=== PATIENT | female | born 1995 | race Caucasian/White ===

== ENCOUNTER 2017-10-22 18:04 | Emergency (ER) | payer OTHER ==
[~2017-10-22] VITALS: Ht 154.9 cm; Wt 62.7 kg
[2017-10-22 18:13] VITALS: TEMP 36.6; Ht 154.9 cm; Wt 62.7 kg
--- NOTE | 2017-10-22 18:38 | EMERGENCY ROOM VISIT NOTE ---
History Report prepared by Natasha: Rudy Jones Under the Supervision of: Dr. Isaac Davis M.D. First contact with patient: 18:19 Chief Complaint: CHEST PAIN Stated Complaint: CHEST PAINS Nursing Triage Summary: Patient presents with parents ambulatory to triage with c/o mid to right sided chest pain Has seen chiropractor for symptoms without relief States she has had pain intermittently for the last year States pain is always there and feels like it is getting worse Patient states she is SOB at times History of Present Illness The patient is a 22 year old female who presents to the Emergency Room with complaints of worsening chest pain beginning a month ago. The patient states she is occasionally short of breath, dizzy, and lightheaded. She reports her symptoms have been worsening over the past week. The patient notes her symptoms radiate into her right shoulder and eating makes it occasionally worse. She states nothing makes it better. The patient reports stretching and deep breathing does not make it worse. She notes she has not been taking pain medication. The patient states she was evaluated by a chiropractor and was told she would need x-rays if her symptoms did not resolve. She denies a past medical history, nausea, and trauma to her chest. Source of History: patient Onset: month ago Position: chest Timing: worsening Modifying Factors (Worsening): eating Associated Symptoms: + SOB (occasional), No nausea Note: Associated symptoms: occasional dizziness and lightheadedness Denies: trauma Review of Systems See HPI for pertinent positives & negatives. A total of 10 systems reviewed and were otherwise negative. Past Medical & Surgical Medical Problems: (1) No Known Active Medical Problems Family History Patient reports no known family medical history. Social History Smoking Status: Never Smoker Marital Status: single Housing Status: lives with family Current/Historical Medications No Active Prescriptions or Reported Meds Allergies Coded Allergies: No Known Allergies (Unverified , 10/22/17) Physical Exam Vital Signs Date Time Temp Pulse Resp B/P (MAP) Pulse Ox O2 Delivery O2 Flow Rate FiO2 10/22/17 20:57 86 18 119/73 100 10/22/17 20:05 78 18 115/71 99 Room Air 10/22/17 18:42 100 Room Air 10/22/17 18:29 107 10/22/17 18:13 36.6 108 16 120/81 100 Room Air Physical Exam GENERAL: Awake, alert, well-appearing, in no acute distress HENT: Normocephalic, atraumatic. Oropharynx unremarkable. EYES: Normal conjunctiva. Sclera non-icteric. NECK: Supple. No nuchal rigidity. FROM. No JVD. RESPIRATORY: Clear to auscultation. CARDIAC: Regular rate, normal rhythm. Extremities warm and well perfused. Pulses equal. ABDOMEN: Soft, non-distended. No tenderness to palpation. No rebound or guarding. No masses. RECTAL: Deferred. MUSCULOSKELETAL: Chest examination reveals tenderness to the right chest wall. The back is symmetrical on inspection without obvious abnormality. There is no CVA tenderness to palpation. No joint edema. LOWER EXTREMITIES: Calves are equal size bilaterally and non-tender. No edema. No discoloration. NEURO: Normal sensorium. No sensory or motor deficits noted. SKIN: No rash or jaundice noted. Medical Decision & Procedures ER Provider Diagnostic Interpretation: X-ray results as stated below per interpretation by me and the radiologist: CHEST ONE VIEW PORTABLE CLINICAL HISTORY: CHEST PAIN dyspnea COMPARISON STUDY: No previous studies for comparison. FINDINGS: The bones soft tissues and hemidiaphragms are normal. The cardiomediastinal silhouette is normal. The lungs are clear. The pulmonary vasculature is normal. IMPRESSION: Negative chest. The above report was generated using voice recognition software. It may contain grammatical, syntax or spelling errors. Electronically signed by: Sahil Barragan M.D. 10/22/2017 6:45 PM Dictated Date/Time: 10/22/2017 6:45 PM Laboratory Results 10/22/17 18:30 Red Blood Count 4.61, Mean Corpuscular Volume 79.0, Mean Corpuscular Hemoglobin 27.3, Mean Corpuscular Hemoglobin Concent 34.6, Mean Platelet Volume 9.4, Neutrophils (%) (Auto) 60.1, Lymphocytes (%) (Auto) 27.7, Monocytes (%) (Auto) 10.7, Eosinophils (%) (Auto) 0.7, Basophils (%) (Auto) 0.7, Neutrophils # (Auto ) 4.59, Lymphocytes # (Auto) 2.11, Monocytes # (Auto) 0.82, Eosinophils # (Auto ) 0.05, Basophils # (Auto) 0.05 10/22/17 18:30 Test 10/22/17 18:30 10/22/17 19:27 10/22/17 20:17 White Blood Count 7.63 K/uL (4.8-10.8) Red Blood Count 4.61 M/uL (4.2-5.4) Hemoglobin 12.6 g/dL (12.0-16.0) Hematocrit 36.4 % (37-47) Mean Corpuscular Volume 79.0 fL (80-100) Mean Corpuscular Hemoglobin 27.3 pg (25-34) Mean Corpuscular Hemoglobin Concent 34.6 g/dl (32-36) Platelet Count 291 K/uL (130-400) Mean Platelet Volume 9.4 fL (7.4-10.4) Neutrophils (%) (Auto) 60.1 % Lymphocytes (%) (Auto) 27.7 % Monocytes (%) (Auto) 10.7 % Eosinophils (%) (Auto) 0.7 % Basophils (%) (Auto) 0.7 % Neutrophils # (Auto) 4.59 K/uL (1.4-6.5) Lymphocytes # (Auto) 2.11 K/uL (1.2-3.4) Monocytes # (Auto) 0.82 K/uL (0.11-0.59) Eosinophils # (Auto) 0.05 K/uL (0-0.5) Basophils # (Auto) 0.05 K/uL (0-0.2) RDW Standard Deviation 41.9 fL (36.4-46.3) RDW Coefficient of Variation 14.7 % (11.5-14.5) Immature Granulocyte % (Auto) 0.1 % Immature Granulocyte # (Auto) 0.01 K/uL (0.00-0.02) Anion Gap 7.0 mmol/L (3-11) Est Creatinine Clear Calc Drug Dose 98.0 ml/min Estimated GFR () 127.9 Estimated GFR (Non- 110.4 BUN/Creatinine Ratio 11.5 (10-20) Calcium Level 8.7 mg/dl (8.5-10.1) Total Bilirubin 2.5 mg/dl (0.2-1) Direct Bilirubin 0.3 mg/dl (0-0.2) Aspartate Amino Transf (AST/SGOT) 13 U/L (15-37) Alanine Aminotransferase (ALT/SGPT) 17 U/L (12-78) Alkaline Phosphatase 69 U/L (45-117) Total Creatine Kinase 84 U/L (26-192) Creatine Kinase MB 0.6 ng/ml (0.5-3.6) Creatine Kinase MB Ratio 0.7 (0-3.0) Troponin I < 0.015 ng/ml (0-0.045) Total Protein 8.1 gm/dl (6.4-8.2) Albumin 4.1 gm/dl (3.4-5.0) Lipase 99 U/L (73-393) Bedside D-Dimer 106 ng/mlFEU (0-450) Bedside Troponin I < 0.030 ng/ml (0-0.045) Labs reviewed by ED physician. Medications Administered Medications (Trade) Dose Ordered Sig/Kimberly Route Start Time Stop Time Status Last Admin Dose Admin Famotidine (Pepcid Tab) 20 mg NOW STAT PO 10/22/17 18:49 10/22/17 18:51 DC 10/22/17 19:30 20 MG Sucralfate (Carafate Tab) 1 gm NOW STAT PO 10/22/17 18:49 10/22/17 18:51 DC 10/22/17 19:30 1 GM Potassium Chloride (Klor-Con M10) 40 meq STK-MED ONCE .ROUTE 10/22/17 19:28 10/22/17 19:29 DC 10/22/17 19:30 40 MEQ Al Hydroxide/Mg Hydroxide (Maalox Susp) 30 ml STK-MED ONCE .ROUTE 10/22/17 19:28 10/22/17 19:29 DC 10/22/17 19:31 30 ML Lidocaine HCl (Viscous Lidocaine 2% Soln) 20 ml STK-MED ONCE .ROUTE 10/22/17 19:28 10/22/17 19:29 DC 10/22/17 19:32 20 ML Potassium Chloride (Klor-Con Tab) 40 meq NOW STAT PO 10/22/17 19:50 10/22/17 19:51 DC 10/22/17 20:22 40 MEQ ECG Per My Interpretation Indication: chest pain Rate (beats per minute): 106 Rhythm: sinus tachycardia Findings: T-wave inversion (Inferior and anterior), other (No ST elevation or depression) Comparison ECG Date: Same visit Change: no significant change Change: Repeat EKG in the same visit: Normal sinus rhythm with a rate of 80. TWI inferiorly and anteriorly. Unchanged from previous EKG. ED Course 1820: Past medical records reviewed. The patient was evaluated in room A04B. A complete history and physical examination was performed. 1848: Ordered Sucralfate 1gm PO, Famotidine 20mg PO 1927: Ordered Lidocaine HCl 20ml .ROUTE, Maalox Susp 30ml .ROUTE, Potassium Chloride 40 meq .ROUTE 1949: Ordered Potassium Chloride 40meq PO 1951: I reevaluated the patient. She is feeling better from the GI cocktail, Pepcid, and Carafate. 2033: I discussed the patient's case with Dr. Head, Cardiology. He agreed with close, outpatient follow-up. 2039: Upon reexamination the patient is resting. I discussed results and treatment plan with the patient. She verbalizes agreement and understanding. The patient is ready for discharge. Medical Decision Etiologies such as cardiac ischemia, aortic dissection, pulmonary embolism, pneumonia, pneumothorax, musculoskeletal, infections, pericarditis, myocarditis , esophageal rupture, gastrointestinal, as well as others were entertained. This is a 22-year-old female who presents emergency department complaining of chest pain. The patient has T-wave inversions in the inferior leads as well as the anterior leads however her chest pain has been ongoing for the past month. The patient had serial EKGs obtained in the emergency department which were essentially unchanged. In addition she had 2 troponins drawn. As the chest pain has been going on for months I would expect her troponin to be elevated if this were related to her heart. As such they are not. In addition the patient does not have a elevation in her white blood cell count and has a normal renal profile. Her d-dimer is also negative. I believe she is at low risk for a blood clot. In addition I did discuss this case with cardiology and stress to both the patient as well as her parents that she needs close follow-up with cardiology for an outpatient echo. I also stressed no strenuous activity until that follow-up. Patient and parents were in agreement with the treatment plan. Medication Reconcilliation Current Medication List: was personally reviewed by me Blood Pressure Screening Patient's blood pressure: Normal blood pressure Blood pressure disposition: Did not require urgent referral Consults Time Called: 2031 Consulting Physician: Dr. Head, Cardiology Returned Call: 2033 I discussed the patient's case with Dr. Head, Cardiology. He agreed with close , outpatient follow-up. Impression Primary Impression: Chest pain Scribe Attestation The scribe's documentation has been prepared under my direction and personally reviewed by me in its entirety. I confirm that the note above accurately reflects all work, treatment, procedures, and medical decision making performed by me. Departure Information Dispostion Home / Self-Care Prescriptions No Active Prescriptions or Reported Meds Referrals Montez Head MD Forms HOME CARE DOCUMENTATION FORM, IMPORTANT VISIT INFORMATION, School Instructions, Work Instructions Patient Instructions Chest Pain - [facility], Hypokalemia Dc, [facility] Additional Instructions FOLLOW UP WITH DR HEAD'S OFFICE THIS WEEK No strenuous activity until follow up. You have been examined and treated today on an emergency basis only. This is not a substitute for, or an effort to provide, complete comprehensive medical care. It is impossible to recognize and treat all injuries or illnesses in a single emergency department visit. It is therefore important that you follow up closely with your PCP. Call as soon as possible for an appointment. Thank you for your time and consideration. I look forward to speaking with you again soon. Please don't hesitate to call us if you have any questions. Problem Qualifiers Primary Impression: Chest pain Chest pain type: unspecified Qualified Codes: R07.9 - Chest pain, unspecified
[2017-10-22 18:42] VITALS: O2SAT 100
[2017-10-22 18:47] LABS: BASO % 0.7 %; BASO ABS # 0.05 K/uL (0-0.2); EOS % 0.7 %; EOS ABS # 0.05 K/uL (0-0.5); HEMATOCRIT 36.4 % (37-47); HEMOGLOBIN 12.6 g/dL (12.0-16.0); IG# 0.01 K/uL (0.00-0.02); LYMPH % 27.7 %; LYMPH ABS # 2.11 K/uL (1.2-3.4); MEAN CORPUSCULAR HEMOGLOBIN 27.3 pg (25-34); MEAN CORPUSCULAR HGB CONC 34.6 g/dl (32-36); MEAN PLATELET VOLUME 9.4 fL (7.4-10.4); MONO % 10.7 %; MONO ABS # 0.82 K/uL (0.11-0.59); NEUT % 60.1 %; NEUT ABS # 4.59 K/uL (1.4-6.5); PLATELET COUNT 291 K/uL (130-400); RED CELL DISTRIBUTION WIDTH CV 14.7 % (11.5-14.5); RED CELL DISTRIBUTION WIDTH SD 41.9 fL (36.4-46.3); WHITE BLOOD COUNT 7.63 K/uL (4.8-10.8)
--- NOTE | 2017-10-22 18:47 | DIAGNOSTIC IMAGING REPORT ---
CHEST ONE VIEW PORTABLE CLINICAL HISTORY: CHEST PAIN dyspnea COMPARISON STUDY: No previous studies for comparison. FINDINGS: The bones soft tissues and hemidiaphragms are normal. The cardiomediastinal silhouette is normal. The lungs are clear. The pulmonary vasculature is normal. IMPRESSION: Negative chest. The above report was generated using voice recognition software. It may contain grammatical, syntax or spelling errors. Electronically signed by: Sahil Barragan M.D. 10/22/2017 6:45 PM Dictated Date/Time: 10/22/2017 6:45 PM
[2017-10-22] MEDS ORDERED: FAMOTIDINE 20 MG TAB PO STA (18:49)
[2017-10-22] MEDS ORDERED: SUCRALFATE 1 GM TAB PO STA (18:49)
[2017-10-22] MEDS ORDERED: GI COCKTAIL PO STA (18:49)
[2017-10-22 19:06] LABS: ALBUMIN 4.1 gm/dl (3.4-5.0); ALT/SGPT 17 U/L (12-78); AST/SGOT 13 U/L (15-37); BLOOD UREA NITROGEN 9 mg/dl (7-18); CALCIUM 8.7 mg/dl (8.5-10.1); CARBON DIOXIDE 26 mmol/L (21-32); CREATININE 0.77 mg/dl (0.60-1.20); GLUCOSE 95 mg/dl (70-99); LIPASE 99 U/L (73-393); POTASSIUM 3.2 mmol/L (3.5-5.1); SODIUM 136 mmol/L (136-145)
[2017-10-22 19:11] LABS: ALKALINE PHOSPHATASE 69 U/L (45-117); CKMB 0.6 ng/ml (0.5-3.6); TOTAL PROTEIN 8.1 gm/dl (6.4-8.2)
[2017-10-22] MEDS ORDERED: POTASSIUM CHLORIDE 20 MEQ TABCR PO STA ×2 (19:18→19:50)
[2017-10-22] MEDS ORDERED: LIDOCAINE HCL 2% VISC SOLN 20 ML UDC ONE (19:28)
[2017-10-22] MEDS ORDERED: ALUMINUM/MAGNESIUM SUSP 30 ML UDC ONE (19:28)
[2017-10-22] MEDS ORDERED: POTASSIUM CHLORIDE 10 MEQ TABCR ONE (19:28)
[2017-10-22 20:57] VITALS: BP 119/73; PULSE 86; O2SAT 100
== END 2017-10-22 20:58 | disposition home or self-care (01) ==
LOC: C.EDB 18:06 → C.EDA 20:58
DX: R07.9 Chest pain, unspecified (principal)